=== PATIENT | female | born 1930 | race American Indian/Alaskan Native ===

== ENCOUNTER 2017-06-26 04:58 | Inpatient (IN) | payer MEDICARE ==
[2017-06-26 04:58] VITALS: BMI 37.5
[2017-06-26] MEDS ORDERED: DiphenhydrAMINE 50 mg/ml Inj ONE (05:04)
--- NOTE | 2017-06-26 05:04 | C.PDOC ---
History Of Present Illness 87 year old female is brought to the ED for evaluation of an allergic reaction. Patient states her tongue got swollen and started worsening over the past few hours. Patient reports she has been on a hydrogeologist COMFORT inhibitor. Patient is speaking in full sentences and tolerating her own secretions. Patient denies fever, chills, nausea, vomit, diarrhea, headache. Time Seen by Provider: 06/26/17 05:04 Chief Complaint (Nursing): Allergic Reaction History Per: Patient History/Exam Limitations: no limitations Onset/Duration Of Symptoms: Hrs Current Symptoms Are (Timing): Still Present Possible Cause: COMFORT Inhibitor Associated Symptoms: Swelling Home/EMS Treatment: None Severity: Severe Pain Scale Rating Of: 8 Recent travel outside of the [place]: No Additional History Per: Patient Past Medical History Reviewed: Historical Data, Nursing Documentation, Vital Signs Vital Signs: Last Vital Signs Temp Pulse 69 06/26/17 06:03 Resp 18 06/26/17 06:03 BP 147/75 06/26/17 06:03 Pulse Ox 98 06/26/17 06:03 - Medical History PMH: HTN Denies: Chronic Kidney Disease Surgical History: Appendectomy Family History: States: Unknown Family Hx - Social History Hx Tobacco Use: No Hx Alcohol Use: No Hx Substance Use: No - Immunization History Hx Tetanus Toxoid Vaccination: No Hx Influenza Vaccination: No Hx Pneumococcal Vaccination: No Review Of Systems Constitutional: Negative for: Fever, Chills ENT: Positive for: Mouth Swelling. Negative for: Nose Discharge Cardiovascular: Negative for: Chest Pain Respiratory: Negative for: Cough, Shortness of Breath Gastrointestinal: Negative for: Nausea, Vomiting Musculoskeletal: Negative for: Back Pain Skin: Negative for: Rash Neurological: Negative for: Weakness, Numbness, Headache Psych: Negative for: Anxiety Physical Exam - Physical Exam Appears: Non-toxic, No Acute Distress Skin: Warm, Dry Head: Normacephalic Eye(s): bilateral: Normal Inspection Nose: No Discharge, No Deformity Oral Mucosa: Moist Tongue: Swelling, No Bleeding, Other (edematous) Lips: Normal Appearing Teeth: Edentulous Gingiva: Normal Appearing Throat: No Erythema, No Exudate Neck: Trachea Midline, Supple Chest: Symmetrical Cardiovascular: Rhythm Regular, No Murmur Respiratory: No Rales, No Rhonchi, No Wheezing Gastrointestinal/Abdominal: Soft, No Tenderness, No Guarding, No Rebound Back: Normal Inspection Extremity: Normal ROM Extremity: Bilateral: Atraumatic, Normal Color And Temperature Pulses: Left Dorsalis Pedis: Normal, Right Dorsalis Pedis: Normal Neurological/Psych: Oriented x3 Gait: Steady ED Course And Treatment O2 Sat by Pulse Oximetry: 98 (On RA) Pulse Ox Interpretation: Normal Progress Note: Plan: - Benadryl 25 mg IVP. - Pepcid 20 mg IVP. - Solumedrol 125 mg IVP. - IV fluid. pt stable, tongue still large. 5:[address] molina, icu, will come and see the pt Critical Care Time - Critical Care Note Total Time (in mins): 30 Documented critical care: time excludes all time spent performing seperately billable procedures. Disposition Discussed With .: Ricardo Lewis Comment: accepted the pt on his service and took over the care at 6:28AM Doctor Will See Patient In The: ED Counseled Patient/Family Regarding: Studies Performed, Diagnosis - Disposition Referrals: Ricardo Lewis MD [Primary Care Provider] - Disposition: HOSPITALIZED Disposition Time: 05:04 Condition: GUARDED Forms: [employer] (Kiswahili) - POA Present On Arrival: None - Clinical Impression Clinical Impression: Angioedema - Scribe Statement The provider has reviewed the documentation as recorded by the Scribe Gomez Elena All medical record entries made by the Scribe were at my direction and personally dictated by me. I have reviewed the chart and agree that the record accurately reflects my personal performance of the history, physical exam, medical decision making, and the department course for this patient. I have also personally directed, reviewed, and agree with the discharge instructions and disposition. Decision To Admit - Pt Status Changed To: Hospital Disposition Of: Inpatient - Admit Certification Admit to Inpatient:: After my assessment, the patient will require hospitalization for at least two midnights. This is because of the severity of symptoms shown, intensity of services needed, and/or the medical risk in this patient being treated as an outpatient. - InPatient: Physician Admission Certification:: After my assessment, the patient will require hospitalization for at least two midnights. This is because of the severity of symptoms shown, intensity of services needed, and/or the medical risk in this patient being treated as an outpatient. - . Bed Request Type: ICU Admitting Physician: Ricardo Lewis Patient Diagnosis: Angioedema
[2017-06-26] MEDS ORDERED: DiphenhydrAMINE 50 mg/ml Inj IVP STA (05:05)
[2017-06-26] MEDS ORDERED: Sodium Chloride 0.9% 1,000 ML IV ONE (05:05)
[2017-06-26 06:27] LABS: BASO # 0.1 K/uL (0.0-0.2); BASO % 0.8 % (0.0-2.0); EOS # 0.2 K/uL (0.0-0.7); EOS % 3.1 % (0.0-4.0); HEMOGLOBIN 14.2 g/dL (11.0-16.0); LYMPH # 2.8 K/uL (1.0-4.3); LYMPH % 39.6 % (20.0-40.0); MEAN CELL VOLUME 86.3 fL (81.0-99.0); MEAN CORPUSCULAR HEMOGLOBIN 28.5 pg (27.0-31.0); MEAN PLATELET VOLUME 8.9 fL (7.2-11.7); MONO # 0.6 K/uL (0.0-0.8); MONO % 7.9 % (0.0-10.0); NEUT # 3.4 K/uL (1.8-7.0); NEUT % 48.6 % (50.0-75.0); NRBC % 0.1 % (0.0-2.0); RBC 4.97 Mil/uL (3.80-5.20); RED CELL DISTRIBUTION WIDTH 13.3 % (11.5-14.5)
[2017-06-26 06:46] LABS: BLOOD UREA NITROGEN 23 mg/dL (7-17); CALCIUM 9.6 mg/dl (8.6-10.4); GFR AFRICAN-AMERICAN > 60; GFR NON-AFRICAN AMERICAN 59
--- NOTE | 2017-06-26 07:08 | CP.PCM.CON ---
History of Present Illness - History of Present Illness History of Present Illness: 87 f with h/o htn, hyperlipidimia around 2 am felt the tongue was burning and she observed in the mirror the tongue was swollen and that prompted her to come to the hospital. She was noticed the tongue swollen, firm, patient was able to talk in sentences, no breathing difficulty, able to swallow her secretions. As per the patient the swelling feels to have been same since start. Patient has received solumedrol, pepcid, benadyrl. Patient is on enalpril for long time her meds have not been changed for years. PMH As above PSH Appendicitis Social lives with family, denies smoking, alcohol Allergies NKDA Family history not contributory Review of Systems - Review of Systems All systems: reviewed and no additional remarkable complaints except (HPI) Past Patient History - Infectious Disease Hx of Infectious Diseases: None - Past Social History Smoking Status: Never Smoked Drugs: Denies Home Situation {Lives}: With Family Domestic Violence: Negative - CARDIAC Hx Hypertension: Yes - PULMONARY Hx Respiratory Disorders: No - NEUROLOGICAL Hx Neurological Disorder: No - HEENT Hx HEENT Problems: No - RENAL Hx Chronic Kidney Disease: No - ENDOCRINE/METABOLIC Hx Endocrine Disorders: No - HEMATOLOGICAL/ONCOLOGICAL Hx Blood Disorders: No - INTEGUMENTARY Hx Dermatological Problems: No - MUSCULOSKELETAL/RHEUMATOLOGICAL Hx Musculoskeletal Disorders: No - GASTROINTESTINAL Hx Gastrointestinal Disorders: No - GENITOURINARY/GYNECOLOGICAL Hx Genitourinary Disorders: No - PSYCHIATRIC Hx Substance Use: No - SURGICAL HISTORY Hx Appendectomy: Yes - ANESTHESIA Hx Anesthesia: Yes Hx Anesthesia Reactions: No Hx Malignant Hyperthermia: No Meds Allergies/Adverse Reactions: Allergies Allergy/AdvReac Type Severity Reaction Status Date / Time No Known Allergies Allergy Verified 06/26/17 05:00 - Medications Medications: Current Medications Famotidine (Pepcid) 20 mg IVP Q12 SALLY Sodium Chloride (Sodium Chloride 0.9%) 1,000 mls @ 100 mls/hr IV .Q10H ONE Stop: 06/26/17 15:04 Last Admin: 06/26/17 05:13 Dose: 100 mls/hr Methylprednisolone (Solu-Medrol) 40 mg IV Q12 SALLY Physical Exam - Additional Findings Additional findings: * HEENT, swollen adama firm with clear cyst under surface, left lateral jaw line bit swollen, behind the chin firm swelling noticed above the level of hyoid , no stridor * Neck as above * Chest Clear * CVS regular not gallop or rub * PA soft nt * Ext no edema * Skin slight low turgor * EAR NOSE THROAT PHYSICIAN awake oriented x3 no fnd. Results - Vital Signs Recent Vital Signs: Last Vital Signs Temp Pulse 69 06/26/17 06:03 Resp 18 06/26/17 06:03 BP 147/75 06/26/17 06:03 Pulse Ox 98 06/26/17 06:29 - Labs Result Diagrams: 06/26/17 06:19 Labs: Laboratory Results - last 24 hr 06/26/17 06:19 Sodium 139 Potassium 4.7 Chloride 102 Carbon Dioxide 25 Anion Gap 16 BUN 23 H Creatinine 0.9 Est GFR ( Amer) > 60 Est GFR (Non-Af Amer) 59 Random Glucose 91 Calcium 9.6 Assessment & Plan - Assessment and Plan (Free Text) Assessment: * Angioedema of the tongue maintained airway, and secretions, pt on enalpril for years * H/o htn Plan: * Continue iv steroid, iv pepcid, prn benadryl depending on the sedation, will reduce secretions as well * Observe in ICU, if worsens will need nasal intubation with fiberoptic unlikely need any surgical airway. * ACEI will be stopped * See orders for detail.
[2017-06-26] MEDS: MethylPREDNISolone 40 mg Vial IV SCH ×2 (09:43→21:01)
[2017-06-27 06:23] LABS: BASO % 0.3 % (0.0-2.0); EOS % 0.1 % (0.0-4.0); HEMOGLOBIN 13.2 g/dL (11.0-16.0); LYMPH # 1.4 K/uL (1.0-4.3); LYMPH % 17.5 % (20.0-40.0); MEAN CELL VOLUME 85.7 fL (81.0-99.0); MEAN CORPUSCULAR HEMOGLOBIN 28.6 pg (27.0-31.0); MEAN CORPUSCULAR HGB CONC 33.4 g/dL (33.0-37.0); MONO # 0.2 K/uL (0.0-0.8); MONO % 2.5 % (0.0-10.0); NEUT # 6.5 K/uL (1.8-7.0); NEUT % 79.6 % (50.0-75.0); RBC 4.61 Mil/uL (3.80-5.20); RED CELL DISTRIBUTION WIDTH 13.5 % (11.5-14.5); WHITE BLOOD COUNT 8.2 K/uL (4.8-10.8)
[2017-06-27 06:34] LABS: ALBUMIN 3.7 g/dL (3.5-5.0); ALT/SGPT 28 U/L (9-52); AST/SGOT 18 U/L (14-36); BLOOD UREA NITROGEN 20 mg/dL (7-17); CALCIUM 9.3 mg/dl (8.6-10.4); GFR AFRICAN-AMERICAN > 60; GFR NON-AFRICAN AMERICAN > 60
--- NOTE | 2017-06-27 07:14 | HP ---
HISTORY OF PRESENT ILLNESS: The patient is an 87-year-old female with history of hypertension, obesity, and hyperlipidemia. The patient went to the emergency room because of swelling of the tongue and face. The patient stated that in the evening, she seen some swelling of the lips and heaviness in the tongue. The patient has took some home remedy but the tongue and face keep swelling, and the son-in-law has asked the patient to go to the emergency room and EMS was called. The patient went immediately to the emergency room. Even before the emergency room, the patient had received Solu-Medrol and Benadryl and Pepcid; and in the emergency room, the patient received the same medication, and the patient was evaluated in the emergency room by ICU physician, the buckshot swage operator, and the patient was admitted to ICU. ALLERGIES: THE PATIENT UNTIL NOW HAS NO KNOWN ALLERGY. MEDICATIONS: The patient was receiving Lasix and also was getting lisinopril and vitamin D . SOCIAL HISTORY: The patient has no history of smoking or alcohol abuse. FAMILY HISTORY: No inherited disease. REVIEW OF SYSTEMS: RESPIRATORY SYSTEM: The patient denies any shortness of breath and never had any shortness of breath from the start. CARDIOVASCULAR: No chest pain. GI: The patient denies any nausea or vomiting. : No dysuria. NEUROLOGIC: The patient denies any weakness. PHYSICAL EXAMINATION: GENERAL: The patient is alert, awake, oriented x2, pleasant, able to speak full sentence but has been complaining of heaviness in the tongue. VITAL SIGNS: The patient has blood pressure of 164/54, pulse is 67, respiration 18, temperature 98.5. HEENT: Head, there is some swelling of the lips, mainly at the lower lips and also there is a swelling of the tongue which is decreasing at this point. NECK: Supple. There is no stridor noted. LUNGS: Clear. HEART: Regular rate and rhythm, positive murmur which is old. ABDOMEN: Soft, obese, nontender. No palpable mass. EXTREMITIES: There is no edema. There is mild tenderness to the knees which is also old. LABORATORY DATA: The patient had some blood tests done and the WBC is 7, hemoglobin 14.2, hematocrit 42.9, and platelets were 456. Chemistry: Sodium 139, potassium 4.7, chloride 102, bicarb is 25, BUN 22, creatinine is 0.9, and calcium is 9.6. IMPRESSION: The patient is admitted with a diagnosis of allergic reaction probably due to the enalapril, hypertension, arthritis, and obesity. The patient is again still in the intensive care unit and consulted. The patient was consulted by Dr. Bunny Nicholas who was the buckshot swage operator at this time. PLAN: We are going to continue the patient on Solu-Medrol, and we are going to watch for any reaction, then we will consider epinephrine subcutaneously if the patient starts the swelling again. Case was seen and reviewed with the nurse who is attending the patient this morning. Ricardo Lewis MD
--- NOTE | 2017-06-27 07:21 | CP.CCUPN ---
CCU Subjective - Physician Review Subjective (Free Text): 06/27/17 07:21 Patient seen and examined at bedside. CCU Objective - Vital Signs / Intake & Output Vital Signs (Last 4 hours): Vital Signs Temp Pulse Resp BP Pulse Ox 06/27/17 07:00 59 L 16 97 06/27/17 06:59 94/76 L 06/27/17 06:00 87 19 95 06/27/17 05:59 167/59 H 06/27/17 05:00 69 19 100 06/27/17 04:59 169/73 H 06/27/17 04:00 98.5 F 59 L 17 96 06/27/17 03:59 148/73 Intake and Output (Last 8hrs): Intake & Output 06/26/17 06/27/17 06/27/17 22:59 06:59 14:59 Intake Total 0 Output Total 500 Balance 0 -500 Weight 88.632 kg Intake: Oral 0 Output: Urine 500 Urine, Voided 500 - Medications Active Medications: Active Medications Generic Name Dose Route Start Last Admin Trade Name Freq PRN Reason Stop Dose Admin Famotidine 20 mg 06/26/17 10:00 06/26/17 21:02 Pepcid IVP 20 mg Q12 SALLY Administration Heparin Sodium (Porcine) 5,000 units 06/26/17 10:00 06/26/17 21:02 Heparin SC 5,000 units Q12 SALLY Administration Methylprednisolone 40 mg 06/26/17 10:00 06/26/17 21:01 Solu-Medrol IV 40 mg Q12 SALLY Administration - Patient Studies Lab Studies: Lab Studies 06/27/17 06/27/17 Range/Units 06:12 06:10 WBC 8.2 (4.8-10.8) K/uL RBC 4.61 (3.80-5.20) Mil/uL Hgb 13.2 (11.0-16.0) g/dL Hct 39.5 (34.0-47.0) % MCV 85.7 (81.0-99.0) fL MCH 28.6 (27.0-31.0) pg MCHC 33.4 (33.0-37.0) g/dL RDW 13.5 (11.5-14.5) % Plt Count 427 H (130-400) K/uL MPV 9.0 (7.2-11.7) fL Neut % (Auto) 79.6 H (50.0-75.0) % Lymph % (Auto) 17.5 L (20.0-40.0) % [place] % (Auto) 2.5 (0.0-10.0) % Eos % (Auto) 0.1 (0.0-4.0) % Baso % (Auto) 0.3 (0.0-2.0) % Neut # (Auto) 6.5 (1.8-7.0) K/uL Lymph # (Auto) 1.4 (1.0-4.3) K/uL [place] # (Auto) 0.2 (0.0-0.8) K/uL Eos # (Auto) 0.0 (0.0-0.7) K/uL Baso # (Auto) 0.0 (0.0-0.2) K/uL Sodium 143 (132-148) mmol/L Potassium 4.8 (3.6-5.2) mmol/L Chloride 106 (98-107) mmol/L Carbon Dioxide 26 (22-30) mmol/L Anion Gap 17 (10-20) BUN 20 H (7-17) mg/dL Creatinine 0.8 (0.7-1.2) mg/dL Est GFR ( Amer) > 60 Est GFR (Non-Af Amer) > 60 Random Glucose 108 H (65-105) mg/dL Calcium 9.3 (8.6-10.4) mg/dl Phosphorus 4.7 H (2.5-4.5) mg/dL Magnesium 2.1 (1.6-2.3) mg/dL Total Bilirubin 0.5 (0.2-1.3) mg/dL AST 18 (14-36) U/L ALT 28 (9-52) U/L Alkaline Phosphatase 67 (38-126) U/L Total Protein 7.3 (6.3-8.3) g/dL Albumin 3.7 (3.5-5.0) g/dL Globulin 3.6 (2.2-3.9) gm/dL Albumin/Globulin Ratio 1.0 (1.0-2.1) Laboratory Results - last 24 hr 03/15/18 03/15/18 06:10 06:12 WBC 8.2 RBC 4.61 Hgb 13.2 Hct 39.5 MCV 85.7 MCH 28.6 MCHC 33.4 RDW 13.5 Plt Count 427 H MPV 9.0 Neut % (Auto) 79.6 H Lymph % (Auto) 17.5 L [place] % (Auto) 2.5 Eos % (Auto) 0.1 Baso % (Auto) 0.3 Neut # (Auto) 6.5 Lymph # (Auto) 1.4 [place] # (Auto) 0.2 Eos # (Auto) 0.0 Baso # (Auto) 0.0 Sodium 143 Potassium 4.8 Chloride 106 Carbon Dioxide 26 Anion Gap 17 BUN 20 H Creatinine 0.8 Est GFR ( Amer) > 60 Est GFR (Non-Af Amer) > 60 Random Glucose 108 H Calcium 9.3 Phosphorus 4.7 H Magnesium 2.1 Total Bilirubin 0.5 AST 18 ALT 28 Alkaline Phosphatase 67 Total Protein 7.3 Albumin 3.7 Globulin 3.6 Albumin/Globulin Ratio 1.0 Critical Care Progress Note - Nutrition Nutrition: Nutrition Category Date Time Status Heart Healthy Diet [DIET] Diets 06/27/17 Breakfast Active
[2017-06-27] MEDS: MethylPREDNISolone 40 mg Vial IV SCH (10:35)
--- NOTE | 2017-06-27 15:42 | CP.PCM.PN ---
Subjective - Date & Time of Evaluation Date of Evaluation: 06/27/17 Time of Evaluation: 15:39 - Subjective Subjective: PT SEEN WITH DR. STALLWORTH IN ICU DURING ROUNDS THIS MORNING. LABS, MEDS, AND VS REVIEWED TOGETHER. AT THIS TIME THE PLAN IS TO CONTINUE TO MONITOR THE PT FOR ONE MORE NIGHT. WE WILL DECREASE THE SOLUMEDROL AND SWITCH TO PO TOMORROW. WILL ALSO ADD AMLODIPINE 5MG PO QD AND LASIX 20 MG PO BID TODAY. IF PT TOLERATES THESE WELL, SHE WILL D/C HOME TOMORROW AFTERNOON WITH THESE RX. 3/ 16 AM LABS ORDERED PER DR. STALLWORTH'S REQUEST. NO FURTHER ORDERS AT THIS TIME. Objective - Vital Signs/Intake and Output Vital Signs (last 24 hours): Temp Pulse Resp BP Pulse Ox 99.1 F 61 16 161/60 H 93 L 06/27/17 12:00 06/27/17 08:00 06/27/17 08:59 06/27/17 09:01 06/27/17 08:00 Intake and Output: 06/27/17 06/27/17 06:59 18:59 Output Total 500 Balance -500 - Medications Medications: Current Medications Amlodipine Besylate (Norvasc) 5 mg PO DAILY SALLY Famotidine (Pepcid) 20 mg IVP Q12 SALLY Last Admin: 06/27/17 10:35 Dose: 20 mg Furosemide (Lasix) 20 mg PO BID SALLY Heparin Sodium (Porcine) (Heparin) 5,000 units SC Q12 SALLY Last Admin: 06/27/17 10:35 Dose: 5,000 units Methylprednisolone (Solu-Medrol) 20 mg IVP Q12 SALLY - Labs Labs: 06/27/17 06:12 06/27/17 06:10
[2017-06-27] MEDS: MethylPREDNISolone 40 mg Vial IVP SCH (21:30)
[2017-06-28 01:08] VITALS: O2SAT 95
--- NOTE | 2017-06-28 01:58 | PN ---
DATE: 06/27/2017 SUBJECTIVE: The patient was seen back earlier this morning with the nurse practitioner, Eboni Saenz, and the patient was in the ICU. The patient was feeling much better. Denied any shortness of breath or chest pain, but had been having slight heaviness and no shortness of breath. PHYSICAL EXAMINATION: VITAL SIGNS: The patient's blood pressure was 150/71, pulse 67, respirations 18, temperature 99.1. HEENT: Head is normocephalic. Mouth is moist. The tongue was back to regular. There was no swelling in the tongue and slight swelling on the lower lip. LUNGS: Clear. HEART: Regular rate and rhythm. Positive murmur, which is old. ABDOMEN: Soft, obese, and nontender. No palpable mass. EXTREMITIES: There is no edema. There is some tenderness to the knee, which is also old. MEDICATIONS: The patient was on Solu-Medrol 40 mg IV q.12 hours and also Benadryl, furosemide, and famotidine. LABORATORY DATA: The patient has some lab done. The lab has shown that the WBC is 8.2, hemoglobin 13.2, hematocrit 39.5, and platelets 427. Chemistry showed sodium 143, potassium 4.8, chloride 106, bicarb 26, BUN 20, creatinine 0.8, glucose 108, phosphorous 4.7, magnesium 2.1. The liver enzyme was within normal limit. PLAN: We are going to decrease the Solu-Medrol to 20 intravenous q.12, and we are going to introduce the amlodipine 5 5 mg daily and furosemide 20 mg twice a day. The case was discussed with the nurse practitioner, Eboni Saenz, and the patient suggested to be transferred to telemetry. Ricardo Lewis MD
[2017-06-28 07:42] LABS: HEMOGLOBIN 13.3 g/dL (11.0-16.0); MEAN CORPUSCULAR HEMOGLOBIN 28.2 pg (27.0-31.0); MEAN CORPUSCULAR HGB CONC 33.1 g/dL (33.0-37.0); MEAN PLATELET VOLUME 8.3 fL (7.2-11.7); RBC 4.71 Mil/uL (3.80-5.20); RED CELL DISTRIBUTION WIDTH 13.5 % (11.5-14.5); WHITE BLOOD COUNT 8.4 K/uL (4.8-10.8)
[2017-06-28 07:53] LABS: BLOOD UREA NITROGEN 26 mg/dL (7-17); CALCIUM 8.9 mg/dl (8.6-10.4); GFR AFRICAN-AMERICAN > 60; GFR NON-AFRICAN AMERICAN > 60
[2017-06-28 08:26] VITALS: PULSE 70; RESP 18; TEMP 98
[2017-06-28 09:01] VITALS: BP 162/78
[2017-06-28] MEDS: MethylPREDNISolone 40 mg Vial IVP SCH (09:01)
--- NOTE | 2017-06-28 11:53 | CP.PCM.PN ---
Subjective - Date & Time of Evaluation Date of Evaluation: 06/28/17 Time of Evaluation: 11:53 - Subjective Subjective: PATIENT ACUTE ANGIOEDEMA IN BED AAOX3 DENIES CHEST PAIN OR SOB NO SIGN OF DISTRESS NOTED Objective - Vital Signs/Intake and Output Vital Signs (last 24 hours): Temp Pulse Resp BP Pulse Ox 98.0 F 70 18 162/78 H 95 06/28/17 08:25 06/28/17 08:25 06/28/17 08:25 06/28/17 09:01 06/28/17 08:25 - Medications Medications: Current Medications Amlodipine Besylate (Norvasc) 5 mg PO DAILY [facility] Last Admin: 06/28/17 09:09 Dose: 5 mg Famotidine (Pepcid) 20 mg IVP Q12 [facility] Last Admin: 06/28/17 09:01 Dose: 20 mg Furosemide (Lasix) 20 mg PO BID [facility] Last Admin: 06/28/17 09:01 Dose: 20 mg Heparin Sodium (Porcine) (Heparin) 5,000 units SC Q12 [facility] Last Admin: 06/28/17 09:01 Dose: 5,000 units Methylprednisolone (Solu-Medrol) 20 mg IVP Q12 [facility] Last Admin: 06/28/17 09:01 Dose: 20 mg - Labs Labs: 06/28/17 07:30 06/28/17 07:30 Assessment and Plan - Assessment and Plan (Free Text) Assessment: PATIENT SEEN AND EXAMINED AT THER BEDSIDE ENALAPRIL WAS DISCONTINUE LUNG SOUND CLEAR AND PATIENT IS SATURATED AT 98% DISCUSS WITH DR STALLWORTH WHO AGREE AND CLEAR FOR DC FOLLOW UP WITH DR STALLWORTH IN 1-2 WEEK AT HIS OFFICE ---CALL FOR APPOINTMENT CONTINUE ALL YOUR HOME MEDICATION ORDER NEW PRESCRIPTION GIVEN AMLODIPINE 10 MG BY MOUTH DAILY DISCONTINUE ENALAPRIL WHICH CAN CAUSE ANGIOEDEMA ACTIVITY TOLERATED CALL DR MEDINA OR GO TO THE EMERGENCY ROOM IF SYMPTOM RETURN OR WORSENING DISCUSS WITH PATIENT WHO AGREE AND VERBALIZED UNDERSTANDING
--- NOTE | 2017-06-28 23:10 | PN ---
DATE: 06/28/2017 SUBJECTIVE: Today, the patient is alert and awake. Denies any heaviness in the tongue or the lip. No shortness of breath or palpitation. No chest pain and no dizziness. PHYSICAL EXAMINATION: VITAL SIGNS: The patient has a blood pressure of 141/67 and 162/78, pulse is 70, respiration is 18, and temperature 98 degrees Fahrenheit. NECK: Supple. No JVD. LUNGS: Clear. HEART: Regular rate and rhythm. ABDOMEN: Soft, nontender, no palpable mass. No hepatomegaly. EXTREMITIES: There is no edema. HEENT: No swelling of the lips No swelling of the tongue. Throat, no redness or exudate. LABORATORY DATA: Blood work done today shows that WBC is 8.4, hemoglobin 13.3, hematocrit 40, platelets 434. Chemistry showed sodium of 138, potassium 4.1, chloride 102, bicarb 26, BUN 26, creatinine 0.8, glucose 106, calcium is 8.9. The patient is very stable and requested that she can be discharged today. The case was discussed with Juan Alberto Rubin, the nurse practitioner. Ricardo Lewis MD
--- NOTE | 2017-06-29 08:47 | DS ---
The patient is an 87-year-old female with history of hypertension and arthritis. The patient was brought into the emergency room because the patient was found to have swelling of the lips and the tongue, that was progressively worsening, so the patient came to the emergency room and was evaluated and admitted to the ICU. As per history, the patient was taking enalapril for many years now, and in the physical exam, it was found that the patient was alert and awake, but was able to speak full sentence and notably, she was in distress. In the emergency room, the patient has received the medications including Solu-Medrol and Benadryl, and the patient was admitted. The patient got Solu-Medrol IV high dose that was 240 twice a day and then 220 twice a day, and the patient continued to have her lip decreasing in size and so did her tongue. Today, we found the patient is comfortable. The tongue is back to normal and also the lips, no pruritus, so the patient then will be able to be discharged home today, but the patient will be discharged on prednisone 10 mg for two days . We are going to follow this patient in the office. Ricardo Lewis MD
== END 2017-06-28 13:37 | disposition home or self-care (01) | DRG 916 ==
LOC: C.ER 04:58 → SUPCPDRO 04:58 → C.9I 06:44 → C.5S 06-27 18:11
PROVIDERS: ADMIT Specialist; ATTEND Specialist
DX: T78.3XXA Angioneurotic edema, initial encounter (principal); T46.4X5D Adverse effect of angiotensin-converting-enzyme inhibitors, subsequent encounter; E78.5 Hyperlipidemia, unspecified; E66.9 Obesity, unspecified; M19.90 Unspecified osteoarthritis, unspecified site; Z90.49 Acquired absence of other specified parts of digestive tract